=== PATIENT | female | born 1975 | race African-American/Black ===

== ENCOUNTER 2017-08-03 23:26 | Emergency (ER) | payer SELFPAY ==
[~2017-08-03] VITALS: Ht 165.1 cm; Wt 74.0 kg
[2017-08-04] MEDS ORDERED: IBUPROFEN 600MG TABLET PO ONE (01:30)
[2017-08-04 03:57] VITALS: BP 119/59
== END 2017-08-04 04:30 | disposition home or self-care (01) ==
LOC: ER 23:26
DX: M25.562 Pain in left knee (principal); V49.50XA Passenger injured in collision with unspecified motor vehicles in traffic accident, initial encounter; Y93.9 Activity, unspecified; Y92.410 Unspecified street and highway as the place of occurrence of the external cause
CPT/HCPCS: 73562; 81025; 99284

== ENCOUNTER 2024-09-10 13:56 | Emergency (ER) | payer SELFPAY ==
[~2024-09-10] VITALS: Ht 165.1 cm; Wt 77.0 kg
[2024-09-10 14:21] VITALS: O2SAT 100
[2024-09-10] MEDS: MORPHINE SULFATE 2 MG/ML INJ (NOT FOR IM USE) IV ONE (15:10)
[2024-09-10 15:21] LABS: BASOPHILS % 0.9 % (0.0-2.0); EOSINOPHILS % 1.5 % (0.0-5.0); HEMATOCRIT. 39.2 % (36.0-48.0); HEMOGLOBIN. 13.4 g/dL (12.0-16.0); LYMPHOCYTES % 56.6 % (20.0-50.0); MEAN PLATELET VOLUME 9.1 fl (7.4-10.4); MONOCYTES % 5.3 % (2.0-8.0); NEUTROPHILS % 35.7 % (40.0-76.0); PLATELET 155 x1000/uL (130-400); RED BLOOD CELL COUNT 4.42 mill/uL (4.2-5.4); RED CELL DISTRIBUTION WIDTH 13.1 % (11.6-14.6)
[2024-09-10 15:29] LABS: CLARITY URINE CLEAR (CLEAR); COLOR URINE YELLOW (YELLOW); GLUCOSE URINE NEGATIVE (NEGATIVE); KETONES URINE NEGATIVE (NEGATIVE); LEUKOCYTE ESTERASE URINE NEGATIVE (NEGATIVE); NITRITE URINE NEGATIVE (NEGATIVE); OCCULT BLOOD URINE NEGATIVE (NEGATIVE); PH URINE 7.0 (4.5-8.0); PROTEIN URINE NEGATIVE (NEGATIVE); SPECIFIC GRAVITY URINE 1.005 (1.005-1.030); UROBILINOGEN URINE 0.2 E.U./dL (0.2-1.0)
[2024-09-10 15:36] LABS: HCG SCREEN NEGATIVE
[2024-09-10 15:37] LABS: CREATININE 1.1 mg/dL (0.6-1.0); UREA NITROGEN BLOOD 11 mg/dL (9-23)
[2024-09-10 15:39] LABS: ASPARTATE AMINOTRANSFERASE 20 IU/L (<34)
[2024-09-10 15:40] LABS: BILIRUBIN DIRECT 0.2 mg/dL (<=3.0); BILIRUBIN TOTAL 1.0 mg/dL (0.1-1.0); PROTEIN TOTAL 7.1 g/dL (6.0-8.3)
[2024-09-10] MEDS ORDERED: LIDO-53 TP (16:47)
[2024-09-10] MEDS ORDERED: IBUP-2030 MT (16:47)
[2024-09-10 17:02] VITALS: BP 123/48; PULSE 58; RESP 15; TEMP 36.9; O2SAT 100
[2024-09-10] MEDS ORDERED: IOHEXOL-300 100 ML BOTTLE ONE (23:24)
== END 2024-09-10 17:20 | disposition home or self-care (01) ==
LOC: ER 13:56
DX: K52.9 Noninfective gastroenteritis and colitis, unspecified (principal); Z98.890 Other specified postprocedural states
CPT/HCPCS: 99285; 74177; 96374; 80053; 81003; 81025; 84703; 83690; 85025; 36415; 80076; Q9967; J2270